=== PATIENT | female | born 1975 | race Caucasian/White ===

== ENCOUNTER 2020-06-03 07:56 | Outpatient (CLI) | payer OTHER, SELFPAY ==
--- NOTE | ~2020-06-03 | MM_ITS ---
EXAMINATION: MM screening [facility] BI w sammy HISTORY: Screening mammogram TECHNIQUE: Craniocaudal and mediolateral oblique 3-D tomosynthesis images were obtained and synthetic 2-D images were generated. CAD analysis was submitted and interpreted. COMPARISON: 08/23/2017 BREAST PARENCHYMAL COMPOSITION: The breasts are extremely dense, which lowers the sensitivity of mamm ography. FINDINGS: There is no evidence of suspicious mass, calcification, or architectural distortion to sugg est malignancy in either breast. There has been no suspicious interval change. IMPRESSION: 1. No mammographic evidence of malignancy. 2. Recommend routine screening mammography in one year. BI-RADS Category 1: Negative Reviewed, dictated and finalized at location A.
== END 2020-06-03 07:57 | disposition home or self-care (01) ==
LOC: ANHIMG 07:57
PROVIDERS: PCP Internal Medicine; Visit Provider Obstetrics & Gynecology
DX: Z12.31 Encounter for screening mammogram for malignant neoplasm of breast (principal)
CPT/HCPCS: 77063; 77067

== ENCOUNTER 2022-08-30 16:21 | Outpatient (CLI) | payer OTHER, SELFPAY ==
--- NOTE | ~2022-08-30 | MM_ITS ---
EXAMINATION: MM screening [facility] BI w sammy HISTORY: Screening TECHNIQUE: Craniocaudal and mediolateral oblique 3-D tomosynthesis images were obtained and synthetic 2-D images were generated. CAD analysis was submitted and interpreted. COMPARISON: Comparison to multiple prior studies sequentially, with oldest reviewed study dated 08/23. BREAST PARENCHYMAL COMPOSITION: The breasts are extremely dense, which lowers the sensitivity of mamm ography FINDINGS: There is no evidence of suspicious mass, calcification, or architectural distortion to sugg est malignancy in either breast. There has been no suspicious interval change. IMPRESSION: 1. No mammographic evidence of malignancy. 2. Recommend routine screening mammography in one year. BI-RADS Category 1: Negative Reviewed, dictated and finalized at location A.
== END 2022-08-30 16:22 | disposition home or self-care (01) ==
PROVIDERS: PCP Internal Medicine; Visit Provider Obstetrics & Gynecology
DX: Z12.31 Encounter for screening mammogram for malignant neoplasm of breast (principal)
CPT/HCPCS: 77063; 77067

== ENCOUNTER 2024-08-03 01:10 | Day surgery (SDC) | payer BC, SELFPAY ==
[2024-07-15 16:03] VITALS: BMI 21.4
[2024-08-03 06:26] VITALS: BP 109/70; PULSE 83; RESP 18; TEMP 36.1; O2SAT 100
[2024-08-03] MEDS: LACTATED RINGERS 1,000 ML 150 ML IV CONT (06:37)
--- NOTE | 2024-08-03 07:00 | WPDANESEPPF ---
Anes - Initial Pre Proc Eval Procedure: Operation Date: 08/03/24 07:30 Proposed Procedures p Colonoscopy - Daryl Sierra MD Date/Time: 08/03/24 07:00 Surgeon: Daryl Sierra MD Pre Op Diagnosis: Constipation, unspecified Patient Data Age: 48 Gender: F Height: 1.75 m Weight: 63.8 kg Last Vital Signs Temp 36.1 C L 08/03/24 06:26 Pulse 83 08/03/24 06:26 Resp 18 08/03/24 06:26 BP 109/70 08/03/24 06:26 Pulse Ox 100 08/03/24 06:26 O2 Del Method Room Air 08/03/24 06:26 Allergies Allergy/AdvReac Type Severity Reaction Status Date / Time No Known Allergies Allergy Mild Verified 07/15/24 16:02 Home Medications ?Medication ?Instructions ?Recorded ?Confirmed ?Type ascorbic acid 30 mg-collagen, 1 tablet PO DAILY 10/04/22 07/15/24 History hydrolyzed 833.3 mg tablet (Collagen Skin Renewal) Patient hx anesthesia problems: none Family hx anesthesia problems: none Results Review: All pre-operative results and documents have been reviewed as part of the pre-operative evaluation. [facility] Past Medical History Medical History (Updated 08/03/24 @ 07:31 by Daryl Sierra MD) Colon cancer screening Vaginal delivery x 2 Surgical History Surgical History History of tonsillectomy and adenoidectomy Social History Social History Smoking status: Never smoker Second hand tobacco smoke exposure: No Alcohol intake: current Alcohol use details: Socially Substance use: never Substance use type: does not use Lack of Transportation: No Lack of Food: Never True Current Housing: I Have Housing Concerned About Future Housing: No Difficulty Paying Gas/Electric Bills: No Difficulty Paying for Meds: No Currently Unemployed: No Education: Associate Degree Difficulty w/ Childcare or Family Care: No Living arrangements: with family Occupation/Education: occupation Gender identity (if verbalized by the patient): Female Sexual Orientation (if Verbalized by the Patient): Straight or Heterosexual Spiritual care concerns: No Anes - Eval Final PreProcedure Day of Procedure 08/03/24 07:00 Patient weight: normal Heart: regular rate and rhythm Lungs: clear to auscultation and normal air movement Airway: Mallampati scale class II Neurological: alert and oriented Last oral intake: >/= 8 hours ASA classification: I Emergent: no Anesthetic plan: proceed Anesthesia type and monitoring: general GIVS and standard monitoring Results Review: All pre-operative results and documents have been reviewed as part of the pre-operative evaluation. Informed Consent: The patient's anesthetic plan and its attendant risks and benefits were discussed with the patient/family/POA. Questions were solicited and answers provided to the satisfaction of the patient/family/POA.
--- NOTE | 2024-08-03 07:31 | PM.HPGS ---
History of Present Illness History of Present Illness Consent: Risks, benefits, and alternatives have been discussed and questions answered. Patient agrees to proceed with procedure. Chief complaint: Constipation, unspecified Narrative: Thu Smart is a 48 year old female here for first screening colonoscopy Review of Systems Review of Systems: All systems reviewed & are unremarkable except as noted in HPI and below PMFSH Past Medical History Medical History (Updated 08/03/24 @ 07:31 by Daryl Sierra MD) Colon cancer screening Vaginal delivery x 2 Surgical History Surgical History History of tonsillectomy and adenoidectomy Social History Social History Smoking status: Never smoker Second hand tobacco smoke exposure: No Alcohol intake: current Alcohol use details: Socially Substance use: never Substance use type: does not use Lack of Transportation: No Lack of Food: Never True Current Housing: I Have Housing Concerned About Future Housing: No Difficulty Paying Gas/Electric Bills: No Difficulty Paying for Meds: No Currently Unemployed: No Education: Associate Degree Difficulty w/ Childcare or Family Care: No Living arrangements: with family Occupation/Education: occupation Gender identity (if verbalized by the patient): Female Sexual Orientation (if Verbalized by the Patient): Straight or Heterosexual Spiritual care concerns: No Meds Home Medications and Allergies Home Medications ?Medication ?Instructions ?Recorded ?Confirmed ?Type ascorbic acid 30 mg-collagen, 1 tablet PO DAILY 10/04/22 07/15/24 History hydrolyzed 833.3 mg tablet (Collagen Skin Renewal) Allergies Allergy/AdvReac Type Severity Reaction Status Date / Time No Known Allergies Allergy Mild Verified 07/15/24 16:02 Vital Signs Vital Signs - 24 hr 08/03/24 06:26 Temperature 97 F L Pulse Rate 83 Respiratory Rate 18 Blood Pressure 109/70 Pulse Oximetry 100 Oxygen Delivery Room Air Exam Const: General: comfortable and no acute distress HENMT: Face/Nose/Sinus: Normal nares present Eyes: General: appearance normal, both eyes and all related structures Neck: Neck: no JVD Resp: Auscultation: clear to auscultation bilaterally Cardio: Rate: regular rate Rhythm: regular rhythm GI: Inspection: non-distended GI Palp: Yes Soft to palpation Skin: General skin exam: normal color Neuro: Speech: normal speech Extrem: General: normal to inspection Psych: Mental Status: mental status grossly normal Assessment and Plan Assessment and plan (1) Colon cancer screening: Code(s): Z12.11 - Encounter for screening for malignant neoplasm of colon Status: Acute Assessment and Plan: colonoscopy
[2024-08-03 07:46] VITALS: BP 81/49; PULSE 82; RESP 20; O2SAT 100
[2024-08-03 07:56] VITALS: BP 99/56; PULSE 85; RESP 20; O2SAT 100
[2024-08-03 08:06] VITALS: BP 101/57; PULSE 86; RESP 18; O2SAT 100
== END 2024-08-03 08:10 | disposition home or self-care (01) ==
PROVIDERS: PCP Internal Medicine; Referring Provider Internal Medicine; Visit Provider Internal Medicine Gastroenterology
PROC: 0DJD8ZZ Inspection of Lower Intestinal Tract, Via Natural or Artificial Opening Endoscopic (ICD-10-PCS; CPT 45378; principal; 2024-08-03 07:30)
DX: Z12.11 Encounter for screening for malignant neoplasm of colon (principal); K64.8 Other hemorrhoids; K59.00 Constipation, unspecified
CPT/HCPCS: 45378; J2704; J7120

== ENCOUNTER 2025-01-06 14:40 | Outpatient (CLI) | payer OTHER, SELFPAY ==
--- NOTE | ~2025-01-06 | MM_ITS ---
EXAMINATION: MM screening [facility] BI w sammy HISTORY: Screening. TECHNIQUE: Craniocaudal and mediolateral oblique 3-D tomosynthesis images were obtained and synthetic 2-D images were generated. CAD analysis was submitted and interpreted. COMPARISON: 2022 and 2020 BREAST PARENCHYMAL COMPOSITION: Dense: The breast tissue is heterogeneously dense, which may obscure small masses. FINDINGS: No suspicious masses are seen. There are no suspicious calcifications. No unexplained architectural distortion is seen. There are no skin or nipple abnormalities identified. There is no adenopathy seen on the images submitted. IMPRESSION: No mammographic evidence to suggest malignancy is seen. The patient may return to screening mammography as per ACR guidelines. BI-RADS: 1 - Negative. Reviewed, dictated and finalized at location B. 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
--- OUTSIDE RECORDS SUMMARY | 2025-01-06 14:45 | XMS_ITS | Data Portability ---
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 Baseline blood work. Obtain old records from previous clinic. colonoscopy follow up 1 year [email or web address] Not available 03/26/2024 22:10:11 Plan of Treatment Reminders Order Date Submit Date Provider Last Modified By Organization Details Last Modified Time Details Appointments None recorded. Lab CMP, serum or plasma 2024 025 [facility], [address], [address], 5 14:19:03 CBC w/ auto diff 2024 025 [facility], [address], [address], 5 14:19:03 lipid panel, serum 2024 025 [facility], [address], [address], 5 19:10:53 TSH, serum or plasma 2024 025 [facility], [address], [place], [address], 14:19:03 T3, free, serum or plasma 2024 025 [facility], [address], [place], [address], 14:19:03 T4, free, serum 2024 025 [facility], [address] [facility] [address], [place], [address], 5 14:19:03 Referral None recorded. Procedures colonoscopy screening (PROC) 2024 025 [facility], [address], [address], [place], [address], 10:14:49 Surgeries None recorded. Imaging None recorded. Medication Orders None recorded. Patient TargetsNo targets recorded. Patient InstructionsNo instructions recorded. Reason for Referral None Reported. Results Created Date Observation Date Name Description Value Unit Range Abnormal Flag Note LastModifiedBy Organization Detail LastModifiedTime Result Notes None recorded. Procedures Surgical History Date Name Laterality Status Provider Name and Address Organization Details Recorded Time tonsillectomy completed JUANITA Allen [facility] 03/26/2024 17:09:19 Imaging Results None recorded. Procedure Notes None recorded. Medical Equipment None Reported. Allergies No known drug allergies Medications Not known to be on any medication Vitals Date Recorded Body height Body mass index (BMI) Body weight Heart rate Oxygen saturation Systolic And Diastolic Provider Name and Address Organization Details Last Updated DateTime 175.26 cm 21.7 kg/m2 20908 g 94 /min 98 % 114/72 mm[Hg] JUANITA Allen [facility] 17:11:27 Social History Question Answer Notes LastModified by Organizat ion Details LastModified Time Tobacco Smoking Status Never Smoker JUANITA Allen [place] - [facility] 03/26/2024 17:09:06 What Is Your Level Of Caffeine Consumption? Moderate Information not available 03/26/2024 What Was The Date Of Your Most Recent Tobacco Screening? 03/26/2024 Information not available 03/26/2024 Sex: Female Functional Status Question Answer Note LastModified by Organizat ion Details LastModified Time Do you use any illicit or recreational drugs? No Information not available 03/26/2024 What is your level of alcohol consumption? Occasional Information not available 03/26/2024 Mental Status None recorded. Family History Relationship Description Onset Age of this Age Resolved Age Notes LastModified by Organization Details LastModified Time Father No current problems or disability [email or web address] Not available 03/26 17:08:50 Mother No current problems or disability [email or web address] Not available 03/26 17:08:50 Medical History Condition Response Coronary Artery Disease N Other N Atrial Fibrillation N High Blood Pressure N Kidney or Bladder Problems N Thyroid Problems N GI Problems N Depression N COPD N Blood Clots N Have you had a mammogram in the last yea r? N Skin Problems N Anemia N Heart Attack ([place]) N Anxiety Disorder N Diabetes N Muscle, Joint, or Bone Problems N Seizures/Epilepsy N Have you had a colonoscopy in the last 1 0 years? N Acid Reflux (GERD) N Cancer N Stroke N Asthma N Allergies N Have you had a PSA blood test in the las t year? N High Cholesterol N Hepatitis N Liver Disease N Headaches N Heart Failure N Osteoporosis N Gynecological History Statement/Question Response Duration of Flow (days) 7 Date of LMP 03/11/2024 Obstetrics History GPAL:G 2 P 0 0 0 0 Immunizations Vaccine Type Date Status Note Provider Nam e and Address Organization Details Recorded Time COVID-19, mRNA, LNP-S, PF, 30 mcg/0.3 mL dose 09/19/2020 completed Margarita Porter [place] null, [place] - [facility] 03/26/2024 17:01:01 COVID-19, mRNA, LNP-S, PF, 30 mcg/0.3 mL dose 10/09/2020 completed Margarita Porter [place], [place] [facility] 03/26/2024 17:01:01 COVID-19, mRNA, LNP-S, PF, 30 mcg/0.3 mL dose 10/30/2020 completed Margarita Porter [place], [place] [facility] 03/26/2024 17:01:01 Tdap 03/11/2015 completed JUANITA [place], [place] - [facility] 03/26/2024 17:01:01 Past Encounters Encounter ID Performer Location Encounter Start Date Encounter Closed Date Diagnosis/Indication Diagnosis SNOMED-CT Code Diagnosis ICD10 Code Diagnosis IMO Codes Diagnosis Note [id number] [place] Marshall MD [facility] - Servando Mccarty [address] [place] [id number] 03/26/2024 16:10:27 03/26/2024 17:54:44 Body mass index 20-24 - normal 114317776 Z68.21 Adult heal th examination 571581544 Z00.00 Constipation 68331357 K5 9.00 Health Concerns Section Related Observation LastModified by Organization Detai ls LastModified Time None Recorded Concern Status LastModified by Organization Details LastModified Time None Recorded Advance Directives Directive None Recorded Payers Insurance Date Sequence Insurance Name Policy Number Policy Giron Covered Member ID Giron Member ID Guarantor Name 03/30/[address] [facility] [id number] Servando Smart [id number] Thu Smart Notes Date Note Type Note Provider Name and Address Organization Details Recorded Time 03/26/2024 text/html reestablish adult health exam meds none allergies none surgeries none family history sister ulcerative colitis. 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 Rome Marshall MD Attn: Accounting,[address] [facility], [place], [address], [facility] 03/26/2024 22:10:37 OBGyn Episode No OBEpisode recorded.
== END 2025-01-06 14:41 | disposition home or self-care (01) ==
PROVIDERS: PCP Internal Medicine; Visit Provider Obstetrics & Gynecology
DX: Z12.31 Encounter for screening mammogram for malignant neoplasm of breast (principal)
CPT/HCPCS: 77063; 77067